=== PATIENT | female | born 1990 | race Caucasian/White ===

== ENCOUNTER 2018-07-18 15:14 | Emergency (ER) | payer OTHER ==
[~2018-07-18] VITALS: Ht 165.1 cm; Wt 111.1 kg
[~2018-07-18 15:14] MED LIST: HYDROCODON-ACE1 EAC7 PO; PENICILLIN V P500 MG PO
[2018-07-18 17:25] VITALS: BP 142/89
== END 2018-07-18 17:26 | disposition home or self-care (01) ==
LOC: M.ERS 15:14
DX: S63.591A Other specified sprain of right wrist, initial encounter (principal); S80.212A Abrasion, left knee, initial encounter; S80.211A Abrasion, right knee, initial encounter; F17.210 Nicotine dependence, cigarettes, uncomplicated; W18.39XA Other fall on same level, initial encounter; Y93.89 Activity, other specified; Y92.89 Other specified places as the place of occurrence of the external cause; Y99.8 Other external cause status